=== PATIENT | male | born 1985 | race Caucasian/White ===

== ENCOUNTER 2020-10-18 11:31 | Outpatient (CLI) | payer BC | END 2020-10-18 11:32 | disposition home or self-care (01) | LOC: CSHCT 11:31 | PROVIDERS: ATTEND Physician Assistant Medical | DX: R10.9 Unspecified abdominal pain (principal); R19.4 Change in bowel habit; K76.0 Fatty (change of) liver, not elsewhere classified | CPT/HCPCS: 74178 ==